=== PATIENT | male | born 1990 | race Asian ===

== ENCOUNTER 2017-05-28 15:51 | Outpatient (CLI) | payer OTHER ==
--- NOTE | 2017-05-28 18:50 | MRI Report ---
EXAM: LEFT KNEE MRI WITHOUT CONTRAST EXAM DATE: 05/28/2017 04:51 PM. CLINICAL HISTORY: Left knee pain. COMPARISON: None. TECHNIQUE: Multiplanar, multisequence T1-weighted and fluid-sensitive sequences of the knee without c ontrast. Other: None. FINDINGS: Bones: No fractures or subluxations. No marrow edema. No bone lesions. Articular Cartilage: Unremarkable. Medial Meniscus: Undersurface complex tear posterior horn midbody medial meniscus. No displaced fragm ent. Lateral Meniscus: The lateral meniscus is intact. Cruciate Ligaments: Chronic ACL tear, PCL is normal. Collateral Ligaments: The medial collateral and lateral collateral ligamentous structures are intact. Tendons: The quadriceps, patellar, semimembranosus, and popliteus tendons are unremarkable. Musculature: No edema or fatty atrophy. Other: No effusion. No popliteal cyst. No loose bodies. The medial and lateral retinacula are intact . The subcutaneous tissues and fat pads are unremarkable. IMPRESSION: 1. Complex undersurface tear posterior horn of midbody medial meniscus. No displaced fragment. 2. Chronic ACL tear, PCL is normal. 3. No other worrisome imaging features. [facility] MUSCULOSKELET[facility]IOLOGY SECTION Referring Provider Line: [phone] SITE ID: [id number]
== END 2017-05-28 15:52 | disposition home or self-care (01) ==
LOC: DI 15:51
PROVIDERS: ATTEND General Practice
DX: S83.232A Complex tear of medial meniscus, current injury, left knee, initial encounter (principal); S83.512A Sprain of anterior cruciate ligament of left knee, initial encounter

== ENCOUNTER 2019-02-26 14:47 | Outpatient (CLI) | payer OTHER ==
--- NOTE | 2019-02-27 14:28 | MRI Report ---
Reason: PAIN IN LEFT KNEE Procedure Date: 02/26/2019 Accession Number: [id number] / [id number] Procedure: MRI - Knee LT W/O CPT Code: FULL RESULT: EXAM: LEFT KNEE MRI WITHOUT CONTRAST EXAM DATE: 02/26/2019 04:27 PM. CLINICAL HISTORY: Pain in left knee. COMPARISON: KNEE LT W/O 05/28/2017 4:45 PM. TECHNIQUE: Multiplanar, multisequence T1-weighted and fluid-sensitive sequences of the knee without contrast. Other: None. FINDINGS: Bones: There are tunnels from interval ACL repair. No fractures. Articular Cartilage: Unremarkable. Medial Meniscus: Postop changes at the medial meniscus with some truncation. No residual or recurrent tears are seen. Lateral Meniscus: The lateral meniscus is intact. Cruciate Ligaments: ACL graft appears intact. PCL is normal. Collateral Ligaments: The medial collateral and lateral collateral ligamentous structures are intact. Tendons: The quadriceps, patellar, semimembranosus, and popliteus tendons are unremarkable. Musculature: No edema or fatty atrophy. Other: No effusion. No popliteal cyst. No loose bodies. The medial and lateral retinacula are intact. The subcutaneous tissues and fat pads are unremarkable. IMPRESSION: 1. Patient status post ACL repair. The alignment is anatomic. ACL graft appears intact. PCL is normal. 2. Postoperative changes at the medial meniscus. No residual or recurrent tears are seen. Lateral meniscus, collaterals appear unremarkable. 3. Articular surfaces also appear normal. No other worrisome imaging features. [facility]
== END 2019-02-26 14:48 | disposition home or self-care (01) ==
LOC: DI 14:47
PROVIDERS: ATTEND Orthopaedic Surgery
DX: M25.562 Pain in left knee (principal); Z98.890 Other specified postprocedural states